=== PATIENT | male | born 1970 | race Caucasian/White ===

== ENCOUNTER 2017-01-28 20:59 | Emergency (ER) | payer BC ==
[2017-01-28 22:27] LABS: #Basophils 0.1 thou/uL (0.0-0.2); #Eosinphils 0.2 thou/uL (0.0-0.7); #Monocytes 0.4 thou/uL (0.11-0.59); #Neutrophils 3.9 thou/uL (1.40-6.50); %Basophils 0.9 % (0.0-1.0); %Eosinophils 2.8 % (0.0-10.0); %Lymphocytes 31.3 % (21.0-51.0); %Monocytes 5.7 % (0.0-10.0); Mean Platelet Volume 7.5 fL (7.4-10.4); White Blood Cell (WBC) Count 6.5 thou/uL (4.8-10.8)
[2017-01-28 22:53] LABS: ALT (SGPT) 43 U/L (8-55); AST (SGOT) 22 U/L (5-34); Alkaline Phosphatase 56 U/L (40-150); Anion Gap 13 mmol/L (10-20); BUN (Urea Nitrogen) 11 mg/dL (8.9-20.6); Bilirubin, Total 0.5 mg/dL (0.2-1.2); Calc. Creatinine Clearance 0 mL/min (70-130); Calcium 9.2 mg/dL (7.8-10.44); Carbon Dioxide 25 mmol/L (22-29); Chloride 104 mmol/L (98-107); Estimated GFR-MDRD 78; Globulin 3.2 g/dL (2.4-3.5); Protein, Total 7.2 g/dL (6.0-8.3)
[2017-01-28] MEDS ORDERED: Apixaban 5 MG TAB PO SCH (23:30)
--- NOTE | 2017-01-28 23:52 | ULT ---
LEFT LOWER EXTREMITY VENOUS DOPPLER: Indication: Left leg pain, redness and swelling with a history of DVT and pulmonary embolism. TECHNIQUE: Wood scale, color Doppler, and vascular duplex with spectral analysis was performed of the deep veno us structures of both lower extremities. The common femoral vein, superficial femoral vein, poplitea l vein, posterior tibial vein, proximal greater saphenous, and proximal profunda veins were assessed bilaterally. FINDINGS: There is diminished compression and flow seen within the mid to distal left posterior tibial vein hernandez spicious for changes of partially occlusive venous thrombus. This is similar to the comparison exam[facility] of 09-01-15. The remaining visualized venous segments demonstrate a normal compressibility, fl ow, and augmentation. 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 POS: HAIDER
== END 2017-01-28 23:40 | disposition home or self-care (01) ==
LOC: ERS 20:59
DX: I82.442 Acute embolism and thrombosis of left tibial vein (principal); F17.210 Nicotine dependence, cigarettes, uncomplicated
CPT/HCPCS: 36415; 80053; 85025; 85379

== ENCOUNTER 2017-05-31 07:34 | Outpatient (CLI) | payer BC ==
--- NOTE | 2017-05-31 14:41 | PFT ---
PATIENT HISTORY: HEIGHT: 71 IN WEIGHT:220 SMOKER: NO HOW LON PACK YRS PACKS PER DAY 1 PRODUCTIVE COUGH: YES LUNG DISEASE: PHYSICIAN INTERPRETATION FINAL REPORT: There is moderate reduction in expiratroy flows along with mild reduction in vital capacity, following bronchodilator therapy, there was marked improvement in both vital capacity and flows suggestive of a very large reversible component. RV is hyperinflated. Gas transfer is normal. IMPRESSION: 1. Obstructive ventilatory impairment with a large reversible component. 2. Normal diffusing capacity. Steamer Tender: Decaler: GRAYSON QUINTANA
--- NOTE | 2017-05-31 14:45 | PFT ---
PATIENT HISTORY: HEIGHT: 72 IN WEIGHT: 220 SMOKER: NO HOW LON PACK YEARS PACKS PER DAY 1 PRODUCTIVE COUGH: YES LUNG DISEASE: PHYSICIAN INTERPRETATION FINAL REPORT: moderate reduction in expiratory flows along with mild reduction in vital capacity following bronchodilator therapy, there was marked improvement in both vital capacity and flows suggestive of a very large reversible component. RV is hyperinflated. Gas transfer is normal. IMPRESSION: 1. Obstructive ventilator impairment with a large reversible component. 2. Normal diffusing capacity. General Store Manager: GRAYSON Pie Filling Mixer: GRAYSON QUINTANA
== END 2017-05-31 07:35 | disposition home or self-care (01) ==
LOC: CP 07:34
PROVIDERS: ATTEND Physician Assistant
DX: R06.02 Shortness of breath (principal)
CPT/HCPCS: 94060; 94727; 94729